=== PATIENT | male | born 1950 | race Caucasian/White ===

== ENCOUNTER 2016-09-11 07:03 | Emergency (ER) | payer BC ==
[~2016-09-11] VITALS: Ht 182.9 cm; Wt 105.5 kg
[~2016-09-11 07:03] MED LIST: ASPIR-LOW81 MG PO; FISH OIL1 IU PO; FLEXERIL10 MG PO; MOTRIN 800800 MG/TAB PO; vitamin A
[2016-09-11 07:06] VITALS: TEMP 98
[2016-09-11] MEDS ORDERED: PRINIVIL10 MG PO (07:09)
[2016-09-11 07:47] LABS: BASO # 0.1 (0.0-0.2); BASO % 0.5 % (0.0-2.0); EOS # 0.1 (0.0-0.7); EOS % 0.5 % (0-4.0); GRAN # 9.9 (1.4-6.5); GRAN % 82.4 % (42.2-75.2); HEMATOCRIT 47.3 % (42.0-52.0); HEMOGLOBIN 16.3 g/dl (13.5-18.0); LYMPH # 1.3 (1.2-3.4); LYMPH % 10.4 % (20.0-51.0); MEAN CELL VOLUME 94 fl (80.0-100.0); MEAN CORPUSCULAR HEMOGLOBIN 32 pg (27.0-31.0); MEAN CORPUSCULAR HGB CONC 35 g/dl (33.0-37.0); MONO # 0.7 (0.1-0.6); MONO % 5.8 % (1.7-9.3); PLATELET COUNT 203 K/mm3 (130-400); RED BLOOD COUNT 5.06 M/mm3 (4.20-5.60); REDCELL DISTRIBUTION WIDTH-CV 11.9 % (11.5-14.5); WHITE BLOOD COUNT 12.1 K/mm3 (4.8-10.8)
[2016-09-11 08:04] LABS: ADJUSTED CALCIUM 9.1 mg/dL (8.4-10.2); ALANINE AMINOTRANSFERASE 43 U/L (21-72); ALBUMIN 4.3 gm/dL (3.5-5.0); ALKALINE PHOSPHATASE 75 U/L (50-136); ANION GAP 12 mmol/L (7-16); BILIRUBIN,TOTAL 0.7 mg/dL (0.0-1.0); BLOOD UREA NITROGEN 15 mg/dL (9-20); CALCIUM 9.3 mg/dL (8.4-10.2); CARBON DIOXIDE 19 mmol/L (22-30); CHLORIDE 107 mmol/L (98-107); CREATININE, serum 1.18 mg/dL (0.66-1.25); GLUCOSE 175 mg/dL (74-106); LIPASE 131 U/L (23-300); POTASSIUM 4.3 mmol/L (3.4-5.0); SODIUM 138 mmol/L (137-145); TOTAL PROTEIN 7.5 gm/dL (6.4-8.2)
[2016-09-11 08:11] LABS: C-REACTIVE PROTEIN < 0.5 mg/dL (0.0-0.9)
[2016-09-11 08:17] LABS: TROPONIN-I < 0.012 ng/mL (0.000-0.034)
[2016-09-11 08:56] LABS: PH 5 (5-8); SQUAMOUS EPITHELIAL None Seen /hpf; URINE APPEARANCE Cloudy; URINE BACTERIA None Seen /hpf; URINE BILIRUBIN Negative (NEGATIVE); URINE BLOOD 3+ (NEGATIVE); URINE COLOR Yellow; URINE GLUCOSE Negative (NEGATIVE); URINE KETONE Negative (NEGATIVE); URINE RBC >50 /hpf; URINE UROBILINOGEN Negative (NEGATIVE); URINE WBC 0-2 /hpf
[2016-09-11] MEDS ORDERED: ZOFRAN 4MG T4 MG/TAB PO (09:31)
[2016-09-11] MEDS ORDERED: NORCO 325 MG-51 TAB PO (09:31)
[2016-09-11] MEDS ORDERED: FLOMAX 0.40.4 MG/CAP PO (09:31)
[2016-09-11 09:44] VITALS: BP 148/97; PULSE 87
== END 2016-09-11 09:47 | disposition home or self-care (01) ==
LOC: COL.ER 07:03
PROVIDERS: Emergency Medicine
DX: N20.1 Calculus of ureter (principal); I10 Essential (primary) hypertension
CPT/HCPCS: J1170; J2405; J7030; Q9967

== ENCOUNTER → 2017-12-24 | Outpatient (CLI) | payer BC ==
[~2017-12-24] MED LIST changes: +FLOMAX 0.40.4 MG/CAP PO; +NORCO 325 MG-51 TAB PO; +PRINIVIL10 MG PO; +ZOFRAN 4MG T4 MG/TAB PO
== END ==
LOC: SUN.DIA 10:24
DX: E11.9 Type 2 diabetes mellitus without complications (principal)
CPT/HCPCS: G0109

== ENCOUNTER → 2017-12-31 | Outpatient (CLI) | payer BC | LOC: SUN.DIA 08:21 | DX: E11.9 Type 2 diabetes mellitus without complications (principal) | CPT/HCPCS: G0108; G0109 ==

== ENCOUNTER → 2018-01-21 | Outpatient (CLI) | payer BC | LOC: SUN.DIA 13:57 | DX: E11.9 Type 2 diabetes mellitus without complications (principal) | CPT/HCPCS: G0109 ==

== ENCOUNTER → 2018-04-23 | Outpatient (CLI) | payer BC | LOC: SUN.DIA 10:51 | DX: E11.9 Type 2 diabetes mellitus without complications (principal) ==

== ENCOUNTER → 2018-08-27 | Outpatient (CLI) | payer MEDICARE | LOC: DIA.ED 10:14 | DX: E78.5 Hyperlipidemia, unspecified (principal); E11.9 Type 2 diabetes mellitus without complications; I10 Essential (primary) hypertension; E66.9 Obesity, unspecified ==